=== PATIENT | female | born 1935 | race Caucasian/White ===

== ENCOUNTER → 2016-06-26 | Outpatient (CLI) | payer MEDICARE, BC ==
--- NOTE | 2016-06-26 14:38 | MM ---
Reason for exam: clinical finding. Last mammogram was performed 1 year ago. History: Patient is postmenopausal and has history of other cancer at age 79. Benign excisional biopsy of the right breast. Indicated problem(s): lump or thickening in the right breast. Physical Findings: Nurse did not find any significant physical abnormalities on exam. MG 3D Diag Mammo W/Cad RT CC and MLO view(s) were taken of the right breast. Prior study comparison: June 30, 2015, mammogram. April 28, 2014, mammogram. The breast tissue is heterogeneously dense. This may lower the sensitivity of mammography. Finding: There are typically benign dystrophic, round calcifications in the right breast. There is no discrete abnormality. These results were verbally communicated with the patient and result sheet given to the patient on 06/26/16. ASSESSMENT: Benign, BI-RAD 2 RECOMMENDATION: Routine screening mammogram of both breasts in 1 year. Manage patient on a clinical basis.
--- NOTE | 2016-06-26 14:40 | USB ---
Reason for exam: clinical finding. History: Patient is postmenopausal and has history of other cancer at age 79. Benign excisional biopsy of the right breast. Indicated problem(s): lump or thickening in the right breast. US Breast RT Right breast ultrasound including all four quadrants, the retroareolar region and axilla demonstrates no cystic or solid lesion seen. Calcification noted at 11 o'clock, corresponds to mammogram. These results were verbally communicated with the patient and result sheet given to the patient on 06/26/16. ASSESSMENT: Benign, BI-RAD 2 RECOMMENDATION: Routine screening mammogram of both breasts in 1 year. Manage on a clinical basis with regard to patient symptoms.
== END | disposition home or self-care (01) ==
LOC: RADECHMAIN 11:43
PROVIDERS: ATTEND Family Medicine
DX: N63 Unspecified lump in breast (principal); R00.1 Bradycardia, unspecified; R00.0 Tachycardia, unspecified
CPT/HCPCS: 93225; 93226; 76641; G0206; G0279

== ENCOUNTER → 2017-08-15 | Outpatient (CLI) | payer MEDICARE, BC ==
--- NOTE | 2017-08-18 10:53 | MM ---
Reason for exam: screening (asymptomatic). Last mammogram was performed 1 year and 2 months ago. History: Patient is postmenopausal and has history of other cancer at age 79. Benign excisional biopsy of the right breast. Physical Findings: A clinical breast exam by your physician is recommended on an annual basis and results should be correlated with mammographic findings. MG 3D Screening Mammo W/Cad Bilateral CC and MLO view(s) were taken. Prior study comparison: June 26, 2016, right breast MG 3d diag mammo w/cad RT. June 30, 2015, mammogram. The breast tissue is heterogeneously dense. This may lower the sensitivity of mammography. There are benign appearing stable right breast dystrophic calcifications. No suspicious abnormality. No significant changes when compared with prior studies. ASSESSMENT: Benign, BI-RAD 2 RECOMMENDATION: Routine screening mammogram of both breasts in 1 year.
== END | disposition home or self-care (01) ==
LOC: RADMAMWWP 08:42
PROVIDERS: ATTEND Family Medicine
DX: Z12.31 Encounter for screening mammogram for malignant neoplasm of breast (principal)
CPT/HCPCS: 77063; 77067

== ENCOUNTER → 2018-11-12 | Outpatient (CLI) | payer MEDICARE, BC ==
--- NOTE | 2018-11-13 14:52 | MM ---
Reason for exam: screening (asymptomatic). Last mammogram was performed 1 year and 3 months ago. History: Patient is postmenopausal and has history of other cancer at age 79. Benign excisional biopsy of the right breast. Physical Findings: A clinical breast exam by your physician is recommended on an annual basis and results should be correlated with mammographic findings. MG 3D Screening Mammo W/Cad Bilateral CC, MLO, and XCCL view(s) were taken. Prior study comparison: August 15, 2017, bilateral MG 3d screening mammo w/cad. June 26, 2016, right breast MG 3d diag mammo w/cad RT. The breast tissue is extremely dense which could obscure a lesion on mammography. Benign appearing bilateral calcifications. No suspicious abnormality. No significant changes when compared with prior studies. ASSESSMENT: Benign, BI-RAD 2 RECOMMENDATION: Routine screening mammogram of both breasts in 1 year.
== END | disposition home or self-care (01) ==
LOC: RADMAMWWP 11:30
PROVIDERS: ATTEND Obstetrics & Gynecology
DX: Z12.31 Encounter for screening mammogram for malignant neoplasm of breast (principal)
CPT/HCPCS: 77063; 77067

== ENCOUNTER → 2018-12-21 | Outpatient (CLI) | payer MEDICARE, BC ==
--- NOTE | 2018-12-22 06:47 | CT ---
EXAMINATION TYPE: CT brain wo/w con DATE OF EXAM: 12/21/2018 COMPARISON: None. HISTORY: Dizziness and giddiness per order. CT DLP: 2065 mGycm Automated exposure control for dose reduction was used. CONTRAST: CT scan of the head is performed without and with IV Contrast, patient injected with 80 mL of Isovue 300. FINDINGS: Noncontrast images show no acute intracranial hemorrhage or midline shift. There is ventricular and s ulcal prominence. There is marked low attenuation in the periventricular white matter. Postcontrast i mages show no suspicious enhancement. Scleral calcifications are present bilaterally. IMPRESSION: There is mild to moderate diffuse cerebral atrophy and moderate to severe chronic small v essel ischemic change.
== END | disposition home or self-care (01) ==
LOC: RADCTMAIN 15:23
PROVIDERS: ATTEND Family Medicine
DX: I67.82 Cerebral ischemia (principal); G31.9 Degenerative disease of nervous system, unspecified
CPT/HCPCS: 82565; 84520; 70470; 36415; Q9967

== ENCOUNTER → 2019-02-10 | Outpatient (CLI) | payer MEDICARE, BC ==
--- NOTE | 2019-02-10 13:32 | US ---
EXAMINATION TYPE: US bladder DATE OF EXAM: 02/10/2019 COMPARISON: NONE CLINICAL HISTORY: N18.3 STAGE III CKD. EXAM MEASUREMENTS: Post Void Residual Volume: 6 mL Urinary bladder is anechoic. Color Doppler performed to assess ureteral jets. Bilateral Jets seen: Yes Normal Post Void Residual (less than 50ml): Yes IMPRESSION: No abnormal post void residual.
== END | disposition home or self-care (01) ==
LOC: RADUSWWP 12:42
PROVIDERS: ATTEND Family Medicine
DX: N18.3 Chronic kidney disease, stage 3 (moderate) (principal)
CPT/HCPCS: 76857

== ENCOUNTER → 2019-03-12 | Outpatient (CLI) | payer MEDICARE, BC ==
[2019-03-12 07:38] LABS: Potassium 4.5 mmol/L (3.5-5.1)
[2019-03-12 07:39] LABS: Basophils # (A) 0.1 k/uL (0-0.2); Basophils % (A) 1 %; Eosinophils # (A) 0.3 k/uL (0-0.7); Eosinophils % (A) 6 %; HCT 45.4 % (34.0-46.0); HGB 14.8 gm/dL (11.4-16.0); Lymphocytes # (A) 1.4 k/uL (1.0-4.8); Lymphocytes % (A) 31 %; MCHC 32.6 g/dL (31.0-37.0); MCV 95.1 fL (80.0-100.0); Monocytes # (A) 0.4 k/uL (0-1.0); Monocytes % (A) 9 %; Neutrophils # (A) 2.3 k/uL (1.3-7.7); Neutrophils % (A) 51 %; Platelet Count 187 k/uL (150-450); RBC 4.78 m/uL (3.80-5.40); WBC 4.6 k/uL (3.8-10.6)
== END | disposition home or self-care (01) ==
LOC: LABPAT 06:33
PROVIDERS: ATTEND Obstetrics & Gynecology
DX: Z01.818 Encounter for other preprocedural examination (principal); Z01.812 Encounter for preprocedural laboratory examination; N81.4 Uterovaginal prolapse, unspecified
CPT/HCPCS: 36415; 80051; 82565; 84520; 85025; 86850; 86900; 86901; 87086; 93005

== ENCOUNTER 2019-03-22 05:40 | Day surgery (SDC) | payer MEDICARE, BC ==
[2019-03-15 11:06] VITALS: BMI 20.9
--- NOTE | 2019-03-18 10:40 | HP ---
HISTORY AND PHYSICAL History and physical for surgery on Friday, March 22, 2019. This is an 83-year-old white female, 2, para 2-0-0-[address] Dc's care with increasing perineal bulge. She states that her bladder is hanging out, and that she needs to push on the bladder to completely evacuate urine. The patient is not sexually active. She denies vaginal bleeding. The bowel movements are regular and unremarkable. After examination, cystocele and uterine prolapse were noted and patient has elected to proceed with surgery. She is declining the use of pessary. All risks and benefits discussed, please see below. PAST MEDICAL HISTORY: Past medical history is significant for increasingly symptomatic cystocele, glaucoma, heart murmur, TIA, vertigo, and history of kidney infections as a child. PAST SURGICAL HISTORY: Benign breast surgery, cataract surgery, colonoscopy, skin cancer removal, tonsillectomy. CURRENT MEDICATIONS: 1. Loratadine once daily. 2. Latanoprost 0.005% ophthalmologic drops. ALLERGIES: Allergies include SULFA to which reports GI problems. FAMILY HISTORY: Family is significant for lung cancer, colon cancer, Hodgkin lymphoma, congestive heart failure, and stroke. OBSTETRIC HISTORY: Significant for normal spontaneous vaginal deliveries x2, 1961 and 1964. SOCIAL HISTORY: Patient drinks 1 glass of wine per month. She is a former tobacco smoker. She is retired. PHYSICAL EXAMINATION: On exam, this is a pleasant white female, 5 feet 3 inches, 124 pounds, BMI 22, blood pressure 102/70. HEENT exam reveals no thyromegaly, no cervical lymphadenopathy. Good dentition. Breasts are atrophic, symmetric, bilaterally negative to palpation with no skin lesions, nipple discharge, or axillary adenopathy. Chest is clear to auscultation in all vizcaino, anteriorly and posteriorly. Cardiac exam reveals regular rate and rhythm with no murmur, click, or rub. Abdomen is soft, nontender, active bowel sounds, no organosplenomegaly. Extremities revealed no edema, there are good peripheral pulses. On external genitalia exam, the genitalia is slightly atrophic, no discharge or bleeding. There is a grade 3 to 4 cystocele that is noted. No obvious rectocele. There is a grade 2 to 3 uterine prolapse noted with Valsalva. Adnexa are negative to palpation. Rectal exam reveals good tone, FIT negative stool. IMPRESSION: Increasingly symptomatic grade 3 to 4 cystocele and grade 2 to 3 uterine prolapse. Patient declining option for pessary use and requesting surgical repair. PLAN: We will proceed with vaginal hysterectomy and cystocele repair. The patient is aware of the risks of bleeding, infection, perforation or damage to the bladder, bowels, rectum, ureters, or any pelvic or abdominal organs. Second opinion has been offered and declined. The risks of anesthesia, aspiration, and nerve damage have also been discussed. We will proceed with surgery as above. The ACOG pamphlet has been given to the patient on this procedure and I believe she understands the above discussion with no reservation or question. MMODL / IJN: [id number] /
[~2019-03-22 05:40] MED LIST: metroNIDAZOLE-NS PMX 500 MG in SALINE 1 100ML.BAG IVPB ONE
[2019-03-22] MEDS ORDERED: ONDANSETRON 4 MG/2 ML VIAL IVP ONE ×2 (05:52→10:00)
[2019-03-22] MEDS ORDERED: METOCLOPRAMIDE 5 MG/ML 2 ML VIAL IVP PRN (05:52)
[2019-03-22] MEDS ORDERED: DEXAMETHASONE SOD PHOSPHATE 10 MG/ML 1 ML VIAL IV ONE (05:52)
[2019-03-22] MEDS ORDERED: MORPHINE SULFATE 2 MG/ML SYRINGE IV PRN (05:52)
[2019-03-22] MEDS ORDERED: LIDOCAINE 1% 20 ML VIAL (10MG/ML) FOR IV START INTRADERMA PRN (05:52)
[2019-03-22] MEDS: LACTATED RINGERS 1,000 ML IV SCH ×2 (06:12→14:41)
[2019-03-22] MEDS ORDERED: PROPOFOL 10 MG/ML 20 ML VIAL IV ONE (07:23)
[2019-03-22] MEDS ORDERED: PHENYLEPHRINE-0.9% NACL SYG 1 MG/10 ML SYRINGE ONE (07:23)
[2019-03-22] MEDS ORDERED: MIDAZOLAM 2 MG/2 ML VIAL ONE (07:23)
[2019-03-22] MEDS ORDERED: ACETAMINOPHEN IV (For NPO) 1,000 MG/100 ML VIAL ONE (07:23)
[2019-03-22] MEDS ORDERED: fentaNYL (PF) 50 MCG/ML 2 ML AMP ONE (07:23)
[2019-03-22] MEDS ORDERED: BACITRACIN 500 UNIT/GM OINT 28.4 GM TUBE TOPICAL ONE (08:09)
[2019-03-22] MEDS ORDERED: VASOPRESSIN 20 UNIT/ML 1 ML VIAL SQ ONE (08:09)
[2019-03-22] MEDS ORDERED: LACTATED RINGERS 1,000 ML IV ONE (08:42)
[2019-03-22] MEDS ORDERED: IBUPROFEN 600 MG TAB PO PRN (08:57)
[2019-03-22] MEDS ORDERED: SIMETHICONE 80 MG CHEWABLE PO PRN (08:57)
[2019-03-22] MEDS ORDERED: diphenhydrAMINE 50 MG/ML 1 ML VIAL IVP PRN (08:57)
[2019-03-22] MEDS ORDERED: ONDANSETRON 4 MG/2 ML VIAL IVP PRN (08:57)
--- NOTE | 2019-03-22 08:57 | P.OP ---
Date of Procedure: 03/22/19 Preoperative Diagnosis: Symptomatic uterine prolapse, grade 4 cystocele Postoperative Diagnosis: Same, atrophic appearing ovaries bilaterally Procedure(s) Performed: Vaginal hysterectomy, anterior colporrhaphy Anesthesia: DEBORAHA Surgeon: Luzma Melchor Remote Inpatient Coder #1: Ronnie Hendrickson Estimated Blood Loss (ml): 50 IV fluids (ml): 500 Urine output (ml): 400 Pathology: other (Cervix and uterus) Disposition: PACU Operative Findings: Atrophic appearing ovaries bilaterally. Extremely thin vaginal mucosa, friable and easily torn. Description of Procedure: Patient is brought to the operating suite where a spinal with Duramorph is given. She's placed in the dorsal lithotomy position. The appropriate timeout is performed to assure proper patient and procedural identification. Antibiotics are given. Bladder is drained for approximately 400 mL of clear yellow urine. Weighted speculum was placed into the vagina. Cervix is grasped with a double-tooth tenaculum. The cervix is injected with a dilute Pitressin solution. A [place] blade scalpel was used to incise the mucosa circumferentially with a V positioning in the back. Sponge rolled finger is used to sweep the mucosa from the underlying fascial plane. At all times the mucosa is swept well from the plane to avoid bladder and/or ureteral injury. The peritoneum is entered at 6:00 and suture tied with 2-0 Vicryl. The large billed speculum was then placed. The right uterosacral cardinal ligament complex is identified, clamped cut and held laterally with a hemostat. Same procedure is carried out contralaterally. Uterine vasculature is identified, clamped cut and suture ligated. Uterus is "walked out" posteriorly, the peritoneum is entered at 12:00. Olivier clamps are used across the final pedicles and the cervix and uterus are removed. The pedicles are tied with 0 Vicryl suture, flashed, and retied for excellent hemostasis. A sponge stick is then used and both ovaries appear atrophic and high, left in situ. The 2-0 Vicryl suture at 6:00 is then brought around in a pursestring fashion. The peritoneum is closed, however the tissue is very thin and easily tears. 0 Vicryl sutures on the uterosacral ligaments are now brought across to incorporate the opposite ligament and vaginal mucosa. An additional uthydb-as-kpytr suture of 0 Vicryl is placed inferiorly to close the posterior vaginal cuff. The anterior region is now held with Allis clamps and the anterior repair is started. The mucosa is injected with with the same dilute Pitressin solution. Metzenbaum scissors are used in the midline to undermine the mucosa. This is taken to approximately 1.5 cm inferior to the urethra. A sponge rolled finger is used to sweep the mucosa from the underlying fascial plane. The mucosa again easily tears, and is quite friable. 2-0 Vicryl suture is used in the midline in an interrupted fashion to bring the fascial edges together thereby repairing the cystocele. Pandya catheter is then placed and the urine is noted to be clear. 2-0 Vicryl suture is used in a running locking manner to close the mucosa. It was tented toward the patient's right, and easy tearing of the tissue does not allow for a secure closure in the usual fashion. An additional sfqrkx-ri-hjryu suture is placed on the right to assure that the mucosa is completely covered. The vagina is clean and dry. It is packed with one-inch iodophor gauze with basic tracing. Pandya catheter once again is noted to be draining clear urine. Patient is brought back to recovery room in good condition with stable vital signs including a blood pressure of 137/82, pulse of 82. 100% O2 saturation.
[2019-03-22] MEDS: METOCLOPRAMIDE 5 MG/ML 2 ML VIAL IVP PRN ×2 (14:34→20:38)
--- NOTE | 2019-03-22 16:49 | P.PN ---
Subjective Progress Note Date: 03/22/19 Objective - Vital Signs Vital signs: Vital Signs Temp 98 F 03/22/19 16:24 Pulse 87 03/22/19 16:24 Resp 20 03/22/19 16:24 BP 125/85 03/22/19 16:24 Pulse Ox 99 03/22/19 16:24 Intake & Output 03/21/19 03/22/19 03/22/19 18:59 06:59 18:59 Intake Total 900 850 Output Total 550 Balance 900 300 Weight 56.245 kg Intake: IV 900 850 Oral 0 Output: Urine 500 Estimated Blood Loss 50 Other: Voiding Method Indwelling Catheter # Emeses 1 - Constitutional General appearance: Present: average body habitus, cooperative - EENT Eyes: Present: PERRLA ENT: Present: hearing grossly normal - Neck Neck: Present: normal ROM Thyroid: bilateral: normal size - Respiratory Respiratory: bilateral: CTA - Cardiovascular Rhythm: irregularly irregular Heart sounds: normal: S1, S2 - Gastrointestinal General gastrointestinal: Present: decreased bowel sounds - Genitourinary Genitourinary Comment(s): Vaginal packing removed. Scant dark bloody drainage noted. - Integumentary Integumentary Comment(s): No CVA tenderness. Integumentary: Present: normal - Neurologic Neurologic: Present: CNII-XII intact - Psychiatric Psychiatric: Present: A&O x's 3, appropriate affect, intact judgment & insight Assessment and Plan Assessment: Status post vaginal hysterectomy and anterior colporrhaphy this morning. Nursing staff unable to register temperature. Patient's complaint of nausea with emesis. Plan: We'll check CBC and general chemistry panel. Continue postoperative care. Consider medical consult with [facility] pending progress. Nothing by mouth with ice chips sparingly at this time. Time with Patient: Greater than 30
[2019-03-22] MEDS: ONDANSETRON 4 MG/2 ML VIAL IVP PRN ×2 (17:04→22:56)
[2019-03-22 17:11] LABS: African American GFR (CKD) >90 (>60 ml/min/1.73 sqM); Anion Gap 11 mmol/L; Blood Urea Nitrogen 14 mg/dL (7-17); Calcium 9.5 mg/dL (8.4-10.2); Carbon Dioxide 25 mmol/L (22-30); Chloride 103 mmol/L (98-107); Glucose 152 mg/dL (74-99); Potassium 3.9 mmol/L (3.5-5.1); Sodium 139 mmol/L (137-145)
[2019-03-22 17:13] LABS: Basophils % (A) 0 %; Eosinophils % (A) 0 %; HCT 41.3 % (34.0-46.0); HGB 13.6 gm/dL (11.4-16.0); Lymphocytes # (A) 0.5 k/uL (1.0-4.8); Lymphocytes % (A) 4 %; MCH 31.6 pg (25.0-35.0); MCHC 32.9 g/dL (31.0-37.0); MCV 95.8 fL (80.0-100.0); Mean Platelet Volume 6.4; Monocytes # (A) 0.6 k/uL (0-1.0); Monocytes % (A) 5 %; Neutrophils # (A) 10.4 k/uL (1.3-7.7); Neutrophils % (A) 90 %; Platelet Count 142 k/uL (150-450); RBC 4.31 m/uL (3.80-5.40); WBC 11.6 k/uL (3.8-10.6)
[2019-03-23] MEDS: METOCLOPRAMIDE 5 MG/ML 2 ML VIAL IVP PRN (03:05)
[2019-03-23 06:46] VITALS: BP 128/68; PULSE 78; RESP 18; TEMP 98.4
--- NOTE | 2019-03-23 07:29 | P.DS ---
Providers Date of admission: 03/22/19 Expected date of discharge: 03/23/19 Attending physician: Luzma Melchor Primary care physician: Amyjoel Dc [facility] Course: This is a 83-year-old female 2 para [address] Dc's care with a history of increasingly symptomatic grade 4 cystocele and uterine prolapse. After thorough consultation she elected to proceed with surgery, declining the option of pessary. Please see my dictated history and physical for details. Patient underwent vaginal hysterectomy and cystocele repair under my care yesterday. She did well intraoperatively with the aid of a spinal with Duram orph. Vaginal packing was placed and Pandya catheter was also placed. Vaginal tissues were noted to be very thin and atrophic, please see dictated operative note for details. Ovaries were left in situ per the patient's wishes. Through the night patient had issues with nausea and emesis, eventually palliated by Zofran and Reglan. This morning her nausea has resolved. She has had no further emesis. Pandya catheter has been removed and vaginal packing is also out. There is only scant vaginal drainage. There is no CVA tenderness. The abdomen is soft and nontender, she has active bowel sounds. She is passing flatus. Diet has been advanced to full liquids this morning, and regular food for lunch. Bladder training has been ordered for today. If residuals are less than 100 mL and patient is tolerating food, she will be discharged home later today. I feel she is in good discharge disposition. She is reminded no intercourse, tampons or douching. She will use Motrin or Advil as needed [id number] for pain. Minimal stairclimbing, no heavy lifting, no driving for 2 weeks. She will call me with any fevers shakes or chills, foul smelling or bloody vaginal drainage, with any pain not alleviated by [id number] products, or indeed with any concerns. If bladder training is unsuccessful or patient cannot tolerate regular food this afternoon, we will discharge home likely tomorrow morning. Patient Condition at Discharge: Good Plan - Discharge Summary Discharge Rx Participant: No New Discharge Prescriptions: No Action Lutein 10 mg PO DAILY Glucosam/Chond/Hyalu/Cf Borate [Move Free Joint Health Tablet] 1 each PO DAILY Vitamin B Complex 1 each PO DAILY Ascorbic Acid [Vitamin C] 500 mg PO DAILY Krill/Ashburn-3/Dha/Epa/Lipids [Krill Oil 350 mg Softgel] 1 each PO DAILY Folic Acid 0.4 mg PO DAILY prednisoLONE ACETATE 1% OPHTH [Pred Forte 1%] 1 drops BOTH EYES BID Ketorolac 0.5% Ophth Soln [Acular] 1 drops BOTH EYES BID Latanoprost/Pf [Latanoprost 0.005% Eye Drop] 1 drop BOTH EYES HS Loratadine 10 mg PO DAILY Calcium Carbonate [Calcium] 1,200 mg PO MOWEFR Discharge Medication List Ascorbic Acid [Vitamin C] 500 mg PO DAILY 03/15/19 [History] Calcium Carbonate [Calcium] 1,200 mg PO MOWEFR 03/15/19 [History] Folic Acid 0.4 mg PO DAILY 03/15/19 [History] Glucosam/Chond/Hyalu/Cf Borate [Move Free Joint Health Tablet] 1 each PO DAILY 03/15/19 [History] Ketorolac 0.5% Ophth Soln [Acular] 1 drops BOTH EYES BID 03/15/19 [History] Krill/[place]-3/Dha/Epa/Lipids [Krill Oil 350 mg Softgel] 1 each PO DAILY 03/15/19 [History] Latanoprost/Pf [Latanoprost 0.005% Eye Drop] 1 drop BOTH EYES HS 03/15/19 [History] Loratadine 10 mg PO DAILY 03/15/19 [History] Lutein 10 mg PO DAILY 03/15/19 [History] Vitamin B Complex 1 each PO DAILY 03/15/19 [History] prednisoLONE ACETATE 1% OPHTH [Pred Forte 1%] 1 drops BOTH EYES BID 03/15/19 [History] Follow up Appointment(s)/Referral(s): Luzma Melchor MD [STAFF PHYSICIAN] - 2 Weeks () Discharge Disposition: HOME SELF-CARE
--- NOTE | 2019-03-23 07:48 | P.PN ---
Progress Note - Text Date:03/23 Time:645am Patient is status post vaginal hysterectomy. Patient seen this morning with VAS score of 3.no c/o of pruritus, she had nausea vomiting yesterday with feeling much better today, comfortable and doing well.
== END 2019-03-23 13:45 | disposition home or self-care (01) ==
LOC: OR 05:40 → 6PED 08:55 → OR 03-23 13:45
PROVIDERS: ATTEND Obstetrics & Gynecology
DX: N81.3 Complete uterovaginal prolapse (principal); N72 Inflammatory disease of cervix uteri; D26.1 Other benign neoplasm of corpus uteri; H40.9 Unspecified glaucoma; G43.909 Migraine, unspecified, not intractable, without status migrainosus; R01.1 Cardiac murmur, unspecified; R42 Dizziness and giddiness; Z86.73 Personal history of transient ischemic attack (TIA), and cerebral infarction without residual deficits; Z87.440 Personal history of urinary (tract) infections; Z98.49 Cataract extraction status, unspecified eye; Z87.891 Personal history of nicotine dependence; Z85.828 Personal history of other malignant neoplasm of skin; Z80.0 Family history of malignant neoplasm of digestive organs; Z80.1 Family history of malignant neoplasm of trachea, bronchus and lung; Z82.3 Family history of stroke; Z82.49 Family history of ischemic heart disease and other diseases of the circulatory system; Z79.899 Other long term (current) drug therapy; Z88.2 Allergy status to sulfonamides; Z91.09 Other allergy status, other than to drugs and biological substances
CPT/HCPCS: 58260; 57240; 88305; 80048; 85025; 88311; J2250; J1100; J2765 ×2; J0690; J2405; J3010; J0131; J2370; J2704; 86850; 86900; 86901

== ENCOUNTER 2019-03-24 09:22 | Day surgery (SDC) | payer MEDICARE, BC ==
[2019-03-24 09:50] VITALS: RESP 16; TEMP 97.8
[2019-03-24] MEDS ORDERED: LACTATED RINGERS 1,000 ML IV SCH (10:00)
--- NOTE | 2019-03-24 10:16 | P.PCN ---
Date of Procedure: 03/24/19 Procedure(s) Performed: Procedure= lumbar epidural blood patch. Preoperative diagnosis= postdural puncture headache. Postoperative diagnoses= post dural puncture headache. Indication for the procedure= patient developed headache after spinal, headache persists in spite of conservative treatment, there is no focal neurological deficit, no fever, no neck stiffness, headache worse with sitting and standing position, and improved with lying supine, for this reason patient is a good candidate for epidural blood patch. anesthesia= IV sedation with Versed 1 mg and fentanyl 50 mcg and local infiltration with lidocaine 1% 3 mL. Complications= none. Description of the procedure= patient identified risks and benefits of the procedure explained to the patient and patient agreed with proceeding, vital signs monitored during the procedure and IV sedation given to decrease anxiety, Back lumbar area prepped with chlorhexidine 3 times, then drape applied the local infiltration of the skin and subcutaneous tissue with lidocaine 1% 3 mL at L5-S1 interlaminar space then 20 -gauge Tuohy needle advanced slowly at L5-S1 interlaminar space, There was positive loss of resistance to normal saline, no heme no paresthesia no cerebrospinal fluid, then after that 15 ML of the blood taken from the patient under strict sterile technique, and after the right antecubital area prepped with a chlorhexidine 3 times using 20-gauge Angiocath, and under sterile technique the 15 ML of the block taken from the patient injected in the epidural space after negative aspiration for heme or CSF and there was no paresthesia then the needle removed intact the skin cleaned and the , bandage applied and patient discharged home in stable condition after discharge criteria met, and patient will follow up in the pain clinic when necessary
[2019-03-24 11:14] VITALS: BP 160/85; PULSE 87
[2019-03-24] MEDS ORDERED: IV FLUID CONTINUATION 1,000 ML IV ONE (11:16)
== END 2019-03-24 11:41 | disposition home or self-care (01) ==
LOC: PROCWHC3 09:22
PROVIDERS: ATTEND Specialist
DX: G97.1 Other reaction to spinal and lumbar puncture (principal); Z88.2 Allergy status to sulfonamides; Z91.09 Other allergy status, other than to drugs and biological substances; Z79.52 Long term (current) use of systemic steroids
CPT/HCPCS: 62273; J2250; J3010

== ENCOUNTER → 2019-04-29 | Outpatient (CLI) | payer MEDICARE, BC ==
--- NOTE | 2019-04-29 11:36 | XR ---
EXAMINATION TYPE: XR IVP DATE OF EXAM: 04/29/2019 COMPARISON: NONE HISTORY: 83-year-old female six-week postoperative assessment, right flank pain. Transvaginal hystere ctomy. TECHNIQUE: Following intravenous administration of 100 mL Omnipaque 370, multiple spot images are obt ained. Total images: 9. FINDINGS: The preliminary film of the abdomen shows possible 9 mm nonobstructive left upper pole renal calculus . Multiple pelvic phlebolith. Degenerative changes lumbar spine. Following intravenous administration of contrast material, sequential films of the abdomen were obtai marko. There is prompt and symmetrical excretion of the contrast by both kidneys which demonstrate nor mal size and configuration. The collecting systems and visualized portions of the ureters reveal no abnormality. Only the distal third aspect of the left ureter remains nonopacified during the multiple images. There is no mass or obstruction visualized. There is gradual accumulation of contrast mater ial in the urinary bladder showing no gross abnormality. The post-voiding film shows minimal residua l contrast in the urinary bladder. The distal right ureter in particular is well visualized. IMPRESSION: Only the distal aspect of the left ureter is not adequately evaluated on this study. The right ureter , in particular the distal aspect, is normal. No ureteral obstruction.
== END | disposition home or self-care (01) ==
LOC: RADFLMAIN 09:17
PROVIDERS: ATTEND Obstetrics & Gynecology
DX: R10.9 Unspecified abdominal pain (principal); Z88.2 Allergy status to sulfonamides
CPT/HCPCS: 82565; 84520; 74400; 36415; Q9967

== ENCOUNTER 2019-07-11 06:06 | Emergency (ER) | payer MEDICARE, BC ==
[2019-07-11 06:18] VITALS: BP 143/84; PULSE 76; TEMP 97.8
[2019-07-11 06:32] VITALS: RESP 16
[2019-07-11] MEDS ORDERED: IBUPROFEN 600 MG TAB PO STA (06:43)
--- NOTE | 2019-07-11 06:44 | ED ---
General Adult HPI - General Chief complaint: Upper Respiratory Infection Stated complaint: sore throat Time Seen by Provider: 07/11/19 06:24 Source: patient, RN notes reviewed, old records reviewed Mode of arrival: ambulatory Limitations: no limitations - History of Present Illness Initial comments: Patient is a 83-year-old female presents emergency room today with sore throat, and cough. Patient has had a runny nose, also complaining some fullness in her ears. Patient reports no specific fevers but does report some occasional chills. She reports history of sick contacts and possible exposure to influenza. - Related Data Home Medications Medication Instructions Recorded Confirmed Ascorbic Acid [Vitamin C] 500 mg PO DAILY 03/15/19 03/24/19 Calcium Carbonate [Calcium] 1,200 mg PO MOWEFR 03/15/19 03/24/19 Folic Acid 0.4 mg PO DAILY 03/15/19 03/24/19 Glucosam/Chond/Hyalu/Cf Borate 1 each PO DAILY 03/15/19 03/24/19 [Move Free Joint Health Tablet] Ketorolac 0.5% Ophth Soln [Acular] 1 drops BOTH EYES BID 03/15/19 03/24/19 Krill/Olga-3/Dha/Epa/Lipids 1 each PO DAILY 03/15/19 03/24/19 [Krill Oil 350 mg Softgel] Latanoprost/Pf [Latanoprost 0.005% 1 drop BOTH EYES HS 03/15/19 03/24/19 Eye Drop] Loratadine 10 mg PO DAILY 03/15/19 03/24/19 Lutein 10 mg PO DAILY 03/15/19 03/24/19 Vitamin B Complex 1 each PO DAILY 03/15/19 03/24/19 prednisoLONE ACETATE 1% OPHTH 1 drops BOTH EYES BID 03/15/19 03/24/19 [Pred Forte 1%] Previous Rx's Medication Instructions Recorded Azithromycin [Zithromax Z-pack] 250 mg PO DIRECTED #6 tab 07/11/19 Fluticasone Propionate [Flonase 1 spray EA NOSTRIL BID #1 bottle 07/11/19 Allergy Relief] Allergies Allergy/AdvReac Type Severity Reaction Status Date / Time adhesive tape Allergy peeled Verified 07/11/19 06:18 skin off Sulfa (Sulfonamide Allergy Nausea/head Verified 07/11/19 06:18 Antibiotics) aches Review of Systems ROS Statement: Those systems with pertinent positive or pertinent negative responses have been documented in the HPI. ROS Other: All systems not noted in ROS Statement are negative. Past Medical History Past Medical History: No Reported History History of Any Multi-Drug Resistant Organisms: None Reported Past Surgical History: Breast Surgery, Hysterectomy Past Psychological History: No Psychological Hx Reported Smoking Status: Former smoker Past Alcohol Use History: Occasional Past Drug Use History: None Reported General Exam - General Exam Comments Initial Comments: 83 year old female, no distress. Limitations: no limitations General appearance: alert, in no apparent distress Head exam: Present: atraumatic, normocephalic, normal inspection Eye exam: Present: normal appearance, PERRL, EOMI. Absent: scleral icterus, conjunctival injection, periorbital swelling ENT exam: Present: normal exam, normal oropharynx (Mild pharyngeal erythema. No exudate.), mucous membranes moist Neck exam: Present: normal inspection. Absent: tenderness, meningismus, lymphadenopathy Respiratory exam: Present: normal lung sounds bilaterally. Absent: respiratory distress, wheezes, rales, rhonchi, stridor Cardiovascular Exam: Present: regular rate, normal rhythm, normal heart sounds. Absent: systolic murmur, diastolic murmur, rubs, gallop, clicks GI/Abdominal exam: Present: soft, normal bowel sounds. Absent: distended, tenderness, guarding, rebound, rigid Extremities exam: Present: normal inspection, full ROM, normal capillary refill. Absent: tenderness, pedal edema, joint swelling, calf tenderness Back exam: Present: normal inspection Neurological exam: Present: alert, oriented X3, CN II-XII intact Psychiatric exam: Present: normal affect, normal mood Course Vital Signs 07/11/19 07/11/19 06:15 06:29 Temperature 97.8 F Pulse Rate 76 Respiratory 18 16 Rate Blood Pressure 143/84 O2 Sat by Pulse 96 Oximetry Medical Decision Making - Medical Decision Making 83-year-old female presents to the first sore throat, ear pain, runny nose 3 days. Patient's rapid strep and insulin testing are negative. Patient's lungs are clear to auscultation. No coughing or wheezing on exam. Discussed patient's from viral syndrome. Discussed that using symptomatic treatment,adviseds taking Motrin Tylenol for fever and pain occurs. Recommend using decongestant medication and nasal spray. Discussed return parameters and close PCP follow-up. - Lab Data Lab Results 07/11/19 07/11/19 Range/Units 06:30 06:30 Influenza Type A RNA Not Detected (Not Detectd) Influenza Type B (PCR) Not Detected (Not Detectd) Group A Strep Rapid Negative (Negative) Disposition Clinical Impression: Pharyngitis, URI (upper respiratory infection) Disposition: HOME SELF-CARE Condition: Good Instructions (If sedation given, give patient instructions): Upper Respiratory Infection (ED) Additional Instructions: Patient advised to rest, remain hydrated. Using the nasal spray and recommended [id number] decongestants and cough drops. Patient hasn't close follow-up with primary care doctor symptoms continue persist next week. Take antibiotic if cough becomes productive or fevers and symptoms persist for another 2-3 days. Prescriptions: Fluticasone Propionate [Flonase Allergy Relief] 1 spray EA NOSTRIL BID #1 bottle Azithromycin [Zithromax Z-pack] 250 mg PO DIRECTED #6 tab Is patient prescribed a controlled substance at d/c from ED?: No Referrals: Amy Dc MD [Primary Care Provider] - 1-2 days Time of Disposition: 07:25
== END 2019-07-11 07:36 | disposition home or self-care (01) ==
LOC: EC 06:06
DX: J02.9 Acute pharyngitis, unspecified (principal); Z88.2 Allergy status to sulfonamides; Z91.048 Other nonmedicinal substance allergy status; Z87.891 Personal history of nicotine dependence
CPT/HCPCS: 87081; 87430; 87502; 99284

== ENCOUNTER → 2019-07-13 | Outpatient (CLI) | payer MEDICARE, BC ==
--- NOTE | 2019-07-14 08:00 | CT ---
EXAMINATION TYPE: CT abdomen pelvis w con DATE OF EXAM: 07/13/2019 COMPARISON: None HISTORY: LUQ pain CT DLP: 376.3 mGycm CONTRAST: CT scan of the abdomen and pelvis is performed with Oral Contrast and with IV Contrast, patient injec cristian with 100 mL of Isovue 300. FINDINGS: LUNG BASES-: No visible nodule. No infiltrate. LIVER/GB: No calcified gallstones. No space occupying hepatic lesion. Biliary tree is of normal ca liber. PANCREAS: No inflammation. No distinct mass. SPLEEN: No splenic enlargement. No lesion seen. Splenic granulomas ADRENALS: No nodule. No thickening. KIDNEYS/BLADDER: No hydronephrosis. No nephrolithiasis. No distinct renal mass. Urinary bladder g rossly unremarkable. BOWEL: Normal appendix. Normal bowel caliber. No inflammation. GENITAL ORGANS: No gross abnormality. LYMPH NODES: No greater than 1cm abdominal or pelvic lymph nodes are appreciated. AORTA: No significant abnormality. OSSEOUS STRUCTURES: No significant abnormality is seen. OTHER: No significant additional abnormality is seen. IMPRESSION: 1. No significant abnormality seen. No mass identified.
== END | disposition home or self-care (01) ==
LOC: RADCTMAIN 14:17
PROVIDERS: ATTEND Family Medicine
DX: R19.02 Left upper quadrant abdominal swelling, mass and lump (principal)
CPT/HCPCS: 82565; 84520; 74177; 36415; Q9967

== ENCOUNTER → 2020-02-01 | Outpatient (CLI) | payer MEDICARE, BC ==
--- NOTE | 2020-02-01 13:21 | ECHOS ---
STRESS ECHOCARDIOGRAM LUMASON: Vial INDICATIONS: Chest pain. MEDICATIONS: BASELINE HEART RATE: 68 BASELINE BLOOD PRESSURE: 145/67 MAXIMUM HEART RATE: 144 MAXIMUM BLOOD PRESSURE: 169/92 85% MPHR: 115 100% MPHR: 135 METS: 6.0 MAXIMUM STAGE REACHED: 2 TOTAL EXERCISE TIME: 4:52 CLINICAL INFORMATION: Baseline rhythm is a sinus mechanism, rate of 68, normal axis and intervals, normal echocardiogram. Baseline blood pressure 145/67 mmHg. Patient exercised on Mannie protocol for 4 minutes 52 seconds, reaching peak rate of 144 beats per minute which is above her 100% maximum predicted heart rate. Peak blood pressure 169/92 mmHg. Test was terminated due to fatigue. There were no chest pains. Electrocardiograph monitoring revealed single PVCs with occasional PACs. There was no evidence of diagnostic ischemic ST deviation. FINDINGS: Baseline echocardiogram revealed normal wall motion. At peak exercise, there was normal wall motion augmentation with no hypokinesis or dyskinesis. CONCLUSION: 1. Good exercise tolerance with occasional PVCs and PACs. 2. Normal stress echocardiogram with no evidence of stress-induced ischemia. MMODL / IJN: [id number] /
== END | disposition home or self-care (01) ==
LOC: RADNMMAIN 08:48
PROVIDERS: ATTEND Family Medicine
DX: R07.9 Chest pain, unspecified (principal)
CPT/HCPCS: 93351

== ENCOUNTER 2020-04-22 09:11 | Emergency (ER) | payer MEDICARE, BC ==
[2020-04-22 09:19] VITALS: PULSE 74; RESP 18; TEMP 98.9
--- NOTE | 2020-04-22 09:40 | ED ---
General Adult HPI - General Chief complaint: Upper Respiratory Infection Stated complaint: Cough Weakness Time Seen by Provider: 04/22/20 09:22 Source: patient, RN notes reviewed, old records reviewed Mode of arrival: ambulatory Limitations: no limitations - History of Present Illness Initial comments: Patient is an 84-year-old female who complains of sinus pressure. Respiratory congestion and runny nose for the past 2 weeks. Patient reportedly toxic PCP and was prescribed antibiotics. She reports that she finished his antibiotics but continues to complain of the runny nose. She reports that her cough is nonproductive. The Patient states that she's had no nausea or vomiting. She does report that she was exposed to somebody who had covid 19 infection. She reports that she wants to be tested for Covid 19. - Related Data Home Medications Medication Instructions Recorded Confirmed Ascorbic Acid [Vitamin C] 500 mg PO DAILY 03/15/19 03/24/19 Calcium Carbonate [Calcium] 1,200 mg PO MOWEFR 03/15/19 03/24/19 Folic Acid 0.4 mg PO DAILY 03/15/19 03/24/19 Glucosam/Chond/Hyalu/Cf Borate 1 each PO DAILY 03/15/19 03/24/19 [Move Free Joint Health Tablet] Ketorolac 0.5% Ophth Soln [Acular] 1 drops BOTH EYES BID 03/15/19 03/24/19 Krill/Trego-3/Dha/Epa/Lipids 1 each PO DAILY 03/15/19 03/24/19 [Krill Oil 350 mg Softgel] Latanoprost/Pf [Latanoprost 0.005% 1 drop BOTH EYES HS 03/15/19 03/24/19 Eye Drop] Loratadine 10 mg PO DAILY 03/15/19 03/24/19 Lutein 10 mg PO DAILY 03/15/19 03/24/19 Vitamin B Complex 1 each PO DAILY 03/15/19 03/24/19 prednisoLONE ACETATE 1% OPHTH 1 drops BOTH EYES BID 03/15/19 03/24/19 [Pred Forte 1%] Previous Rx's Medication Instructions Recorded Azithromycin [Zithromax Z-pack (6 250 mg PO DIRECTED #6 tab 07/11/19 tabs)] Fluticasone Propionate [Flonase 1 spray EA NOSTRIL BID #1 bottle 07/11/19 Allergy Relief] Allergies Allergy/AdvReac Type Severity Reaction Status Date / Time adhesive tape Allergy peeled Verified 04/22/20 09:19 skin off Sulfa (Sulfonamide Allergy Nausea/head Verified 04/22/20 09:19 Antibiotics) aches Review of Systems ROS Statement: Those systems with pertinent positive or pertinent negative responses have been documented in the HPI. ROS Other: All systems not noted in ROS Statement are negative. Past Medical History Past Medical History: No Reported History History of Any Multi-Drug Resistant Organisms: None Reported Past Surgical History: Breast Surgery, Hysterectomy Past Psychological History: No Psychological Hx Reported Smoking Status: Never smoker Past Alcohol Use History: Occasional Past Drug Use History: None Reported General Exam - General Exam Comments Initial Comments: 84-year-old female. Alert and oriented 3. Patient's resting comfortably in bed. She appears in no distress. Limitations: no limitations General appearance: alert, in no apparent distress Head exam: Present: atraumatic, normocephalic, normal inspection Eye exam: Present: normal appearance ENT exam: Present: normal exam, mucous membranes moist Neck exam: Present: normal inspection. Absent: tenderness, meningismus, lymphadenopathy Respiratory exam: Present: normal lung sounds bilaterally. Absent: respiratory distress, wheezes, rales, rhonchi, stridor Cardiovascular Exam: Present: regular rate, normal rhythm, normal heart sounds. Absent: systolic murmur, diastolic murmur, rubs, gallop, clicks GI/Abdominal exam: Present: soft, normal bowel sounds. Absent: distended, tend erness, guarding, rebound, rigid Extremities exam: Present: normal inspection, full ROM, normal capillary refill. Absent: tenderness, pedal edema, joint swelling, calf tenderness Back exam: Present: normal inspection Neurological exam: Present: alert, oriented X3, CN II-XII intact Psychiatric exam: Present: normal affect, normal mood Course Vital Signs 04/22/20 09:15 Temperature 98.9 F Pulse Rate 74 Respiratory 18 Rate Blood Pressure 174/96 O2 Sat by Pulse 98 Oximetry Medical Decision Making - Medical Decision Making 84-year-old female with stable vital signs presents the ER today for sinus congestion for 2 weeks. She also reports a minor cough. She reports her cough is dry nonproductive. Lungs are clear to auscultation. She is satting at 97- 98% on room air. Patient at this time has concern for Covid 19 infection will be tested. She otherwise appears clinically well. She is here with her for testing at this time. Patient will be given Covid 19 test. Discussed symptomatic treatment and to rest and remain hydrated. Discussed return if there is any worsening signs or symptoms. Disposition Clinical Impression: Suspected COVID-19 virus infection Disposition: HOME SELF-CARE Condition: Good Instructions (If sedation given, give patient instructions): Upper Respiratory Infection (ED) Additional Instructions: Patient advised to rest, increase fluid intake. Patient should supplement with vitamin C and vitamin D. Return to the emergency department if any alarming signs or symptoms occur. Your results Covid testable be given to the next 3 days. Self quarantine until that time. Use nasal spray. Is patient prescribed a controlled substance at d/c from ED?: No Referrals: Amy Dc MD [Primary Care Provider] - 1-2 days Time of Disposition: 09:39
[2020-04-22 10:06] VITALS: BP 176/103
== END 2020-04-22 10:06 | disposition home or self-care (01) ==
LOC: EC 09:11
DX: Z20.828 Contact with and (suspected) exposure to other viral communicable diseases (principal); Z88.2 Allergy status to sulfonamides; Z91.048 Other nonmedicinal substance allergy status; Z79.899 Other long term (current) drug therapy
CPT/HCPCS: 99284; U0003

== ENCOUNTER → 2020-07-31 | Outpatient (CLI) | payer MEDICARE ==
--- NOTE | 2020-08-01 09:44 | MM ---
Reason for exam: screening (asymptomatic). Last mammogram was performed 1 year and 9 months ago. History: Patient is postmenopausal and has history of other cancer at age 79. Benign excisional biopsy of the right breast. Physical Findings: A clinical breast exam by your physician is recommended on an annual basis and results should be correlated with mammographic findings. MG 3D Screening Mammo W/Cad Bilateral CC and MLO view(s) were taken. Prior study comparison: November 12, 2018, bilateral MG 3d screening mammo w/cad. August 15, 2017, bilateral MG 3d screening mammo w/cad. The breast tissue is heterogeneously dense. This may lower the sensitivity of mammography. There are benign appearing round, dystrophic calcifications in the right breast. There is no discrete abnormality. ASSESSMENT: Benign, BI-RAD 2 RECOMMENDATION: Routine screening mammogram of both breasts in 1 year.
== END | disposition home or self-care (01) ==
LOC: RADMAMWWP 14:38
PROVIDERS: ATTEND Family Medicine
DX: Z12.31 Encounter for screening mammogram for malignant neoplasm of breast (principal)
CPT/HCPCS: 77063; 77067

== ENCOUNTER → 2020-08-01 | Outpatient (CLI) | payer MEDICARE ==
[2020-08-01 11:20] LABS: Basophils # (A) 0.06 X 10*3/uL (0.00-0.10); Basophils % (A) 1.4 %; Eosinophils # (A) 0.24 X 10*3/uL (0.04-0.35); Eosinophils % (A) 5.6 %; HCT 45.4 % (37.2-46.3); HGB 14.6 g/dL (12.0-15.0); Lymphocytes # (A) 1.53 X 10*3/uL (0.90-5.00); Lymphocytes % (A) 35.7 %; MCH 30.3 pg (27.0-32.0); MCHC 32.2 g/dL (32.0-37.0); MCV 94.2 fL (80.0-97.0); Mean Platelet Volume 10.2 fL (9.5-12.2); Monocytes # (A) 0.53 X 10*3/uL (0.20-1.00); Monocytes % (A) 12.4 %; Neutrophils % (A) 44.4 %; Platelet Count 178 X 10*3/uL (140-440); RBC 4.82 X 10*6/uL (4.10-5.20); RDW 13.4 % (11.5-14.5); WBC 4.28 X 10*3/uL (4.50-10.00)
[2020-08-01 11:41] LABS: African American GFR (CKD) 67.6 (60.0-200.0); Albumin 4.4 g/dL (3.80-4.90); Albumin/Globulin Ratio 2.32 (1.60-3.17); Anion Gap 7.1 mmol/L (4.00-12.00); BUN/Creat Ratio 22.22 Ratio (12.00-20.00); Calcium 9.3 mg/dL (8.7-10.3); Carbon Dioxide 30.9 mmol/L (21.6-31.8); Chol/HDL Ratio 2.64; Globulin 1.9 g/dL (1.6-3.3); Non-African American GFR(CKD) 58.3 (60.0-200.0); Potassium 4.1 mmol/L (3.5-5.5); Total Bilirubin 0.8 mg/dL (0.2-1.2); Total Protein 6.3 g/dL (6.2-8.2)
[2020-08-01 14:18] LABS: Erythrocyte Sedimentation Rate 5 mm/Hr (0-30)
== END | disposition home or self-care (01) ==
LOC: LABWHC1 07:02
PROVIDERS: ATTEND Family Medicine
DX: N18.30 Chronic kidney disease, stage 3 unspecified (principal); R07.9 Chest pain, unspecified; E78.49 Other hyperlipidemia; M26.619 Adhesions and ankylosis of temporomandibular joint, unspecified side; R41.3 Other amnesia
CPT/HCPCS: 36415; 80053; 80061; 82550; 82607; 84443; 85025; 85652

== ENCOUNTER → 2021-02-13 | Outpatient (CLI) | payer MEDICARE ==
[2021-02-13 16:53] LABS: Basophils # (A) 0.06 X 10*3/uL (0.00-0.10); Basophils % (A) 1.4 %; Eosinophils # (A) 0.19 X 10*3/uL (0.04-0.35); Eosinophils % (A) 4.5 %; HCT 44.3 % (37.2-46.3); HGB 14.1 g/dL (12.0-15.0); Lymphocytes # (A) 1.33 X 10*3/uL (0.90-5.00); Lymphocytes % (A) 31.8 %; MCH 30.1 pg (27.0-32.0); MCHC 31.8 g/dL (32.0-37.0); MCV 94.7 fL (80.0-97.0); Mean Platelet Volume 10.5 fL (9.5-12.2); Monocytes # (A) 0.56 X 10*3/uL (0.20-1.00); Monocytes % (A) 13.4 %; Neutrophils # (A) 2.03 X 10*3/uL (1.80-7.70); Neutrophils % (A) 48.7 %; Platelet Count 174 X 10*3/uL (140-440); RBC 4.68 X 10*6/uL (4.10-5.20); RDW 13.7 % (11.5-14.5); WBC 4.18 X 10*3/uL (4.50-10.00)
[2021-02-13 21:30] LABS: African American GFR (CKD) 59.1 (60.0-200.0); Albumin 4.3 g/dL (3.80-4.90); Albumin/Globulin Ratio 2.05 (1.60-3.17); Anion Gap 8.9 mmol/L (4.00-12.00); Calcium 9.6 mg/dL (8.7-10.3); Carbon Dioxide 27.1 mmol/L (21.6-31.8); Chol/HDL Ratio 2.62; Globulin 2.1 g/dL (1.6-3.3); LDL Cholesterol,Calculated 97.8 mg/dL (0.0-131.0); Potassium 4.4 mmol/L (3.5-5.5); Total Bilirubin 0.7 mg/dL (0.3-1.2); Total Protein 6.4 g/dL (6.2-8.2); VLDL Calculation 20.2 mg/dL (5.00-40.00)
[2021-02-13 21:38] LABS: T4, Free (Free Thyroxine) 1.1 ng/dL (0.80-1.80)
== END | disposition home or self-care (01) ==
LOC: LABWHC1 08:21
PROVIDERS: ATTEND Family Medicine
DX: R53.83 Other fatigue (principal); N18.31 Chronic kidney disease, stage 3a; E78.89 Other lipoprotein metabolism disorders; R41.3 Other amnesia
CPT/HCPCS: 36415; 80053; 80061; 82306; 82607; 84439; 84443; 85025

== ENCOUNTER → 2021-03-22 | Outpatient (CLI) | payer MEDICARE ==
--- NOTE | 2021-03-22 14:30 | MR ---
EXAMINATION TYPE: MR brain wo/w con DATE OF EXAM: 03/22/2021 COMPARISON: CT brain dated 12/21/2018. HISTORY: Brain fog, unsteady on feet, dizziness, and memory loss. TECHNIQUE: Multiplanar, multisequence images of the brain and brainstem is performed without and with IV contras t, utilizing 5 mL intravenous Gadavist . FINDINGS: Diffusion weighted images demonstrate no evidence of a recent infarct or other diffusion ab normality. There is mild ventricular and sulcal prominence. There are confluent areas of T2 hyperint ensity seen throughout the white matter bilaterally. Lesions are nonspecific in appearance and distri bution. Midline structures demonstrate normal morphology. The craniocervical junction appears within normal limits. Post contrast images demonstrate no abnormal enhancement. The dural venous sinuses appear pa tent. The visualized sinuses are clear and the globes are intact. Some patchy fluid in the inferior l eft mastoid air cells is redemonstrated. IMPRESSION: 1. Some retained patchy fluid inferior left mastoid air cells could reflect products of recurrent mas toiditis versus retained secretions. Correlate clinically. 2. Mild diffuse age-related cerebral atrophy with advanced nonspecific white matter changes could be on basis of product of chronic small vessel ischemic change in patient of this age.
== END | disposition home or self-care (01) ==
LOC: RADMRIMAIN 12:07
PROVIDERS: ATTEND Family Medicine
DX: G31.9 Degenerative disease of nervous system, unspecified (principal); R90.82 White matter disease, unspecified
CPT/HCPCS: 70553; A9585

== ENCOUNTER → 2021-04-03 | Outpatient (CLI) | payer MEDICARE ==
--- NOTE | 2021-04-04 16:14 | BD ---
EXAMINATION TYPE: Axial Bone Density DATE OF EXAM: 04/03/2021 COMPARISON: NONE CLINICAL HISTORY: Height: 5 FT 3 1/2 IN Weight: 125 FRAX RISK QUESTIONS: Alcohol (3 or more units per day): NO Family History (Parent hip fracture): UNSURE Glucocorticoids (More than 3mos): NO (Ex: prednisone, prednisolone, methylprednisolone, dexamethasone, and hydrocortisone). History of Fracture in Adulthood: NO Secondary Osteoporosis: 1. Type 1 Diabetes: NO 2. Hyperthyroidism: NO 3. Menopause before 45: YES 4. Malnutrition: NO 5. Chronic liver disease: NO Rheumatoid Arthritis: NO Current Tobacco Use: NO RISK FACTORS HISTORY OF: Surgery to Spine/Hip(right/left)/Wrist (right/left): NO Family History of Osteoporosis: NO Active: NO Diet low in dairy products/other sources of calcium: NO Postmenopausal woman: AGE 43 Take estrogen and/or progesterone medications: NO Lost more than 2 inches in height since high school: NO MEDICATIONS: Additional Medications: EYE DROPS GLAUCOMA, BRIMONIDINE EYE DROP, VERTIGO MEDS Additional History: EXAM MEASUREMENTS: Bone mineral densitometry was performed using the [employer] System. Bone mineral density as measured about the Lumbar spine is: ----- L1-L4(G/cm2): 0.984 T Score Values are as follows: ----- L2: -2.8 ----- L3: -0.9 ----- L4: -0.3 ----- L1-L4: -1.6 FIRST TIME DONE HERE Bone mineral density about the R hip (g/cm2): 0.706 Bone mineral density about the L hip (g/cm2): 0.717 T Score values are as follows: -----R Neck: -2.4 -----L Neck: -2.3 -----R Total: -1.9 -----L Total: -1.7 FIRST TIME DONE HERE IMPRESSION: Osteopenia (T Score between -2.5 and -1). There is slightly increased risk of fracture and the patient may be considered for treatment. Re-Screen 2-5 years. NOTE: T-SCORE=SD OF THE YOUNG ADULT MEAN.
== END | disposition home or self-care (01) ==
LOC: RADBDWWP 14:42
PROVIDERS: ATTEND Family Medicine
DX: M81.0 Age-related osteoporosis without current pathological fracture (principal); M85.89 Other specified disorders of bone density and structure, multiple sites; Z78.0 Asymptomatic menopausal state
CPT/HCPCS: 77080

== ENCOUNTER → 2021-08-17 | Outpatient (CLI) | payer MEDICARE ==
--- NOTE | 2021-08-20 11:02 | MM ---
Reason for exam: screening (asymptomatic). Last mammogram was performed 1 year and 1 month ago. History: Patient is postmenopausal and has history of other cancer at age 79. Benign excisional biopsy of the right breast. Physical Findings: A clinical breast exam by your physician is recommended on an annual basis and results should be correlated with mammographic findings. MG Screening Mammo w CAD Bilateral CC and MLO view(s) were taken. Prior study comparison: July 31, 2020, bilateral MG 3d screening mammo w/cad. November 12, 2018, bilateral MG 3d screening mammo w/cad. The breast tissue is extremely dense which could obscure a lesion on mammography. Stable benign calcifications. There is no discrete abnormality. No significant changes when compared with prior studies. ASSESSMENT: Benign, BI-RAD 2 RECOMMENDATION: Routine screening mammogram of both breasts in 1 year.
== END | disposition home or self-care (01) ==
LOC: RADMAMWWP 07:06
PROVIDERS: ATTEND Family Medicine
DX: Z12.31 Encounter for screening mammogram for malignant neoplasm of breast (principal); Z78.0 Asymptomatic menopausal state
CPT/HCPCS: 77067

== ENCOUNTER → 2022-02-06 | Outpatient (CLI) | payer MEDICARE ==
--- NOTE | 2022-02-06 09:29 | US ---
EXAMINATION TYPE: US abdomen complete DATE OF EXAM: 02/06/2022 COMPARISON: NONE CLINICAL HISTORY: R10.9 Abd pain. abdominal pain, diarrhea, nausea TECHNIQUE: Multiple sonographic images of the abdomen are obtained. FINDINGS: EXAM MEASUREMENTS: Liver Length: 13.5 cm Gallbladder Wall: 0.2 cm CBD: 0.4 cm Spleen: 8.0 cm Right Kidney: 9.3 x 3.9 x 3.7 cm Left Kidney: 9.5 x 4.4 x 3.1 cm Pancreas: limited evaluation due to overlying bowel content Liver: appears wnl Gallbladder: no evidence of stones Evidence for sonographic Roth's sign: no CBD: wnl Spleen: granulomas Right Kidney: dilated renal pelvis Left Kidney: dilated renal pelvis Upper IVC: wnl Abd Aorta: wnl The liver is homogenous. The intrahepatic portion of the IVC and proximal abdominal aorta are within normal limits. There is no evidence of cholelithiasis. Common bile duct is unremarkable. The visu alized portions of the pancreas are homogenous. The spleen is unremarkable. No renal lesions are s een. IMPRESSION: Mild fullness of the renal collecting systems bilaterally likely reflective of extrarenal pelvis.
== END | disposition home or self-care (01) ==
LOC: RADUSWWP 08:36
PROVIDERS: ATTEND Internal Medicine Geriatric Medicine
DX: R10.9 Unspecified abdominal pain (principal)
CPT/HCPCS: 76700

== ENCOUNTER → 2022-03-01 | Outpatient (CLI) | payer MEDICARE ==
--- NOTE | 2022-03-01 10:03 | USB ---
Reason for Exam: Clinical finding. Patient History: Menarche at age 11. First Full-Term at age 23. Postmenopausal. Other cancer, age 79. Benign Excisional Biopsy on the right side. Technique: Method: Targeted. Prior Study Comparison: 11/12/2018 Bilateral Screening Mammogram, [facility]. 07/31/2020 Bilateral Screening Mammogram, [facility]. 08/17/2021 Bilateral Screening Mammogram, [facility]. Findings: The lower outer quadrant of the right breast, the axilla of the right breast and the retroareolar of the right breast were scanned. Limited ultrasound of the right breast in radial approach examining 6:00 to 9:00, retroareolar and axillary regions. No solid or cystic masses are identified.. Overall Assessment: Negative, BI-RAD 1 Management: Screening Mammogram of both breasts in 1 year. A clinical breast exam by your physician is recommended on an annual basis and results should be correlated with mammographic findings. Electronically signed and approved by: Sandro Ramsey D.O.
== END | disposition home or self-care (01) ==
LOC: RADUSWWP 09:38
PROVIDERS: ATTEND Family Medicine
DX: N63.13 Unspecified lump in the right breast, lower outer quadrant (principal); Z78.0 Asymptomatic menopausal state; Z98.890 Other specified postprocedural states

== ENCOUNTER → 2024-10-01 | Outpatient (CLI) | payer MEDICARE ==
[2024-10-01 10:50] LABS: HCT 40.9 % (37.2-46.3); HGB 13.1 g/dL (12.0-15.0); MCH 30.8 pg (27.0-32.0); Mean Platelet Volume 10.2 FL (9.5-12.2); NRBC Per 100 WBC 0 X 10*3/uL (0.00-0.01); Platelet Count 173 X 10*3/uL (140-440); RBC 4.26 X 10*6/uL (4.10-5.20); RDW 13.9 % (11.5-14.5); WBC 4.46 X 10*3/uL (4.50-10.00)
[2024-10-01 11:29] LABS: ALT 22 U/L (8-44); AST 30 U/L (13-35); Albumin 4.1 g/dL (3.8-4.9); Albumin/Globulin Ratio 2.16 Ratio (1.60-3.17); Alkaline Phosphatase 73 U/L (41-126); BUN/Creat Ratio 22.45 Ratio (12.00-20.00); Blood Urea Nitrogen 24.7 mg/dL (9.0-27.0); Calcium 9.7 mg/dL (8.7-10.3); Carbon Dioxide 23.6 mmol/L (21.6-31.8); Chloride 106 mmol/L (96-109); Globulin 1.9 g/dL (1.6-3.3); Glucose 87 mg/dL (70-110); Potassium 4.5 mmol/L (3.5-5.5); Sodium 145 mmol/L (135-145); Total Bilirubin 0.5 mg/dL (0.3-1.2)
[2024-10-01 11:38] LABS: NT-Pro-B-Type Natriuretic Pept 1257 pg/mL (0-450)
== END | disposition home or self-care (01) ==
LOC: LABWHC1 07:11
PROVIDERS: ATTEND Student in an Organized Health Care Education/Training Program
DX: I50.9 Heart failure, unspecified (principal); D72.9 Disorder of white blood cells, unspecified; E11.9 Type 2 diabetes mellitus without complications; E78.5 Hyperlipidemia, unspecified; E61.9 Deficiency of nutrient element, unspecified; E03.9 Hypothyroidism, unspecified; R79.89 Other specified abnormal findings of blood chemistry
CPT/HCPCS: 36415; 80053; 82306; 82607; 83036; 83880; 84443; 84590; 85027